=== PATIENT | male | born 1955 | race Caucasian/White ===

== ENCOUNTER 2019-04-03 09:39 | Day surgery (SDC) | payer MEDICARE, OTHER ==
[~2019-04-03] VITALS: Ht 182.9 cm; Wt 87.2 kg
[~2019-04-03 09:39] MED LIST: FAMO20; HYDACE5 PO; HYDMOR2 PO; HYDMOR4 PO; PROM25 PO; RANI150 PO; RXHYDMOR2 PO; TAMS.4ER PO
== END 2019-04-03 14:11 | disposition home or self-care (01) ==
LOC: ORSCSDS 09:39
PROVIDERS: Internal Medicine Gastroenterology
PROC: 0DJ08ZZ Inspection of Upper Intestinal Tract, Via Natural or Artificial Opening Endoscopic (ICD-10-PCS; principal; 2019-04-03 13:00)
DX: R12 Heartburn (principal); Z80.0 Family history of malignant neoplasm of digestive organs; K22.2 Esophageal obstruction; K44.9 Diaphragmatic hernia without obstruction or gangrene; I49.3 Ventricular premature depolarization; E78.00 Pure hypercholesterolemia, unspecified; J44.9 Chronic obstructive pulmonary disease, unspecified; Z87.891 Personal history of nicotine dependence; Z79.899 Other long term (current) drug therapy
CPT/HCPCS: J2704; J7120

== ENCOUNTER 2020-09-16 11:07 | Day surgery (SDC) | payer MEDICARE, OTHER ==
[~2020-09-16] VITALS: Ht 182.9 cm; Wt 83.2 kg
[~2020-09-16 11:07] MED LIST changes: +ATOR40TA PO; +PROTONIX40 M1 PO
== END 2020-09-16 13:27 | disposition home or self-care (01) ==
LOC: ORSCSDS 11:07
PROVIDERS: Internal Medicine Gastroenterology
PROC: 0DBP8ZX Excision of Rectum, Via Natural or Artificial Opening Endoscopic, Diagnostic (ICD-10-PCS; principal; 2020-09-16 12:30)
PROC: 0DBL8ZX Excision of Transverse Colon, Via Natural or Artificial Opening Endoscopic, Diagnostic (ICD-10-PCS; principal; 2020-09-16 12:30)
PROC: 0DBN8ZX Excision of Sigmoid Colon, Via Natural or Artificial Opening Endoscopic, Diagnostic (ICD-10-PCS; principal; 2020-09-16 12:30)
PROC: 0DBK8ZX Excision of Ascending Colon, Via Natural or Artificial Opening Endoscopic, Diagnostic (ICD-10-PCS; principal; 2020-09-16 12:30)
DX: Z12.11 Encounter for screening for malignant neoplasm of colon (principal); D12.2 Benign neoplasm of ascending colon; K62.1 Rectal polyp; K57.30 Diverticulosis of large intestine without perforation or abscess without bleeding; K64.8 Other hemorrhoids; Z86.010 Personal history of colon polyps; Z80.0 Family history of malignant neoplasm of digestive organs; Z87.891 Personal history of nicotine dependence
CPT/HCPCS: 88305; J2704; J7120